=== PATIENT | male | born 1980 | race Caucasian/White ===

== ENCOUNTER → 2018-12-03 08:30 | Outpatient (CLI) | payer BC | END | disposition home or self-care (01) | LOC: D.NM 11-28 08:30 | PROVIDERS: ATTEND Family Medicine | DX: R10.9 Unspecified abdominal pain (principal) ==

== ENCOUNTER 2019-03-05 09:56 | Day surgery (SDC) | payer BC, OTHER ==
[~2019-03-05] VITALS: Ht 193 cm; Wt 145.1 kg
[~2019-03-05 09:56] MED LIST: FLUTICASONE PRO16 GM NASAL; GLUCOPHAGE500 MG PO; LISINOPRIL10 MG PO
[2019-03-05 10:35] LABS: HEMATOCRIT 52.2 % (42.0-54.0); HEMOGLOBIN 17.7 g/dL (13.5-17.5); MCH 30.5 pg (26.0-34.0); MCHC 33.9 g/dL (31.0-37.0); MCV 89.8 fL (80.0-100.0); MEAN PLATELET VOLUME 10.1 fL (7.4-10.4); RBC 5.81 10x6/uL (4.20-6.10); RDW 13.7 % (11.5-14.5); WBC 5.9 10x3/uL (4.8-10.8)
[2019-03-05 10:36] LABS: CALCIUM 9.6 mg/dL (8.5-10.1); CARBON DIOXIDE 32.6 mmol/L (21.0-32.0); CREATININE - SERUM 1.3 mg/dL (0.6-1.3); POTASSIUM - SERUM 4.6 mmol/L (3.5-5.1)
[2019-03-05] MEDS ORDERED: ULTRAM50 MG PO (11:26)
[2019-03-05 11:27] VITALS: BP 151/91; Ht 193 cm; Wt 145.1 kg
[2019-03-05] MEDS ORDERED: PERCOCET 10-321 EAC1 PO (15:21)
[2019-03-05] MEDS ORDERED: TORADOL10 MG PO (15:21)
--- NOTE | 2019-03-06 11:07 | OP ---
PATIENT NAME: TE BAKER MEDICAL RECORD: [id number] :80 LOCATION:[facility] ADMISSION DATE: SURGEON: JESUS PEDRO DO DATE OF OPERATION: 03/05/2019 PROCEDURE PERFORMED: Right shoulder arthroscopy with subacromial decompression, distal clavicle excision, biceps tenodesis and labral debridement. PREOPERATIVE DIAGNOSES: Right shoulder pain, subacromial impingement, acromioclavicular joint arthritis and superior labrum anterior and posterior tear. POSTOPERATIVE DIAGNOSES: Right shoulder pain, subacromial impingement, acromioclavicular joint arthritis and superior labrum anterior and posterior tear. INDICATION: Mrs. Baker is a 39-year-old male who has had right shoulder pain for quite some time. He said it has been bothering him for greater than 6 months, tried nonoperative treatment to no avail and he wanted something done surgically. I informed her of the risks including infection, bleeding, damage to nerves and vessels, need for further surgery, continued pain, cosmetic deformity of the bicep and injury to nerves in the area, infection, bleeding, and even and he signed the consent. SURGEON: Jesus Pedro DO URBAN DESIGNER: I was assisted by Elana Ruano, certified surgical first aid nurse. He assisted with closing and retraction. DESCRIPTION OF THE PROCEDURE: The patient received a block by anesthesia in the preoperative area. He was given 900 mg of clindamycin, taken to the operative suite, laid in the left lateral decubitus position with the right shoulder up. He was sedated and LMA was placed. The right upper extremity was then prepped and draped in sterile fashion. A timeout was performed and everyone was in agreement with correct side, site and patient, and the procedure. The procedure then began by insufflating the capsule of the shoulder with 60 mL of normal saline used through an 18-gauge spinal needle. This was then removed. The portal was established with 11-blade scalpel. Trocar was entered in the shoulder joint. Shoulder joint was entered, the camera was then entered. Anterior portal was established with 18-gauge spinal needle and 11-blade scalpel. Then probe was brought in. There was a labral tear seen about the 12 o'clock to the 2 o'clock position and then from posteriorly to the 10 o'clock position. We then brought the burner and did a biceps tenotomy. The rotator cuffs were inspected. Subscap was good. Infraspinatus and supraspinatus were good. There were no loose bodies in the joint. The cartilage was in good repair. A labral debridement was then done. I then went to the subacromial space. Two lateral portals were established. I did incise in order to reach everything. With 18-gauge spinal needle with 11 blade scalpel, the subacromial decompression was done. Distal acromion was removed as well as the spur on it and then the AC joint was opened up to approximately 7 mm. The rotator cuff was in good repair on the bursal side as well. This was then removed and attention was drawn to the anterior humerus. An incision was made there. Careful dissection was made down to the long head biceps tendon, was pulled out through the incision. A regional refrigerated cdl truck driver stitch was put into the anterior humerus and sucked down the long head of bicep tendon toggling down, then this was cut and tied with a OPERATIVE REPORT [id number] TE BAKER free needle through the long head bicep tendon tying it down into place, securing it down and after the cinch had been done. The excess tendon and sutures were then cut and the site was closed with 2-0 Vicryl in inverted interrupted fashion, 4-0 Monocryl running on the skin and Dermabond glue. The portal sites were then closed with 4-0 Monocryl in inverted interrupted fashion. Glue put on them as well. It was covered with Adaptic and ABDs and Telfa and Tegaderm also in different areas covering the incisions. He was awakened and taken to recovery in stable condition. BLOOD LOSS: Minimal. COMPLICATION: None. TRANSINT:[id number] Voice Confirmation ID: [id number] DOCUMENT ID: [id number] JESUS PEDRO DO at 1107 CC: [id number] DICTATION DATE: 03/05/19 1519 RAILROAD CONDUCTOR: 03/06/19 0105 [facility] 03/05/19 [facility] [address] [place] [address]
== END 2019-03-05 18:20 | disposition home or self-care (01) ==
LOC: D.OPS 09:56 → D.PAN 13:45 → D.OPS 18:20
PROVIDERS: Anesthesiology; ATTEND Orthopaedic Surgery
DX: M25.511 Pain in right shoulder (principal); M75.41 Impingement syndrome of right shoulder; M13.819 Other specified arthritis, unspecified shoulder; S43.431A Superior glenoid labrum lesion of right shoulder, initial encounter; X58.XXXA Exposure to other specified factors, initial encounter